=== PATIENT | male | born 1960 | race Hispanic/Latino ===

== ENCOUNTER 2017-06-15 15:40 | Emergency (ER) | payer OTHER ==
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
[2017-06-15] MEDS ORDERED: Bacitracin 500 Units/gm Oint Foilpak UD TOP ONE (18:17)
[2017-06-15] MEDS ORDERED: Tdap Vaccine 0.5 ml Vial (10-64 yrs) IM ONE ×2 (18:17→18:29)
[2017-06-15] MEDS ORDERED: Bacitracin Ointment 30 GM TUBE ONE (18:29)
[2017-06-15] MEDS ORDERED: Bacitracin 500 Units/gm Oint Foilpak UD ONE (18:31)
[2017-06-15 18:43] VITALS: BP 180/116; PULSE 84; RESP 18; TEMP 98.9
[2017-06-15 23:24] VITALS: O2SAT 99
== END 2017-06-15 18:57 | disposition home or self-care (01) ==
LOC: H.ER 15:40
DX: R07.89 Other chest pain (principal); T07.XXXA Unspecified multiple injuries, initial encounter; V43.52XA Car driver injured in collision with other type car in traffic accident, initial encounter; Y92.410 Unspecified street and highway as the place of occurrence of the external cause; I10 Essential (primary) hypertension; J32.9 Chronic sinusitis, unspecified